=== PATIENT | female | born 1940 | race Caucasian/White ===

== ENCOUNTER → 2017-02-25 | Outpatient (CLI) | payer OTHER | END | disposition home or self-care (01) | LOC: MA 09:03 | PROC: BH02ZZZ Plain Radiography of Bilateral Breasts (ICD-10-PCS; principal; 2017-02-25) | DX: Z12.39 Encounter for other screening for malignant neoplasm of breast (principal) | CPT/HCPCS: G0202 ==

== ENCOUNTER 2017-04-21 17:42 | Inpatient (IN) | payer MEDICARE, MEDICAID ==
[~2017-04-21] VITALS: Ht 157.5 cm; Wt 85.3 kg
[2017-04-21 19:00] LABS: UA SPECIFIC GRAVITY 1.025 (1.005-1.035); microscopic required? YES; urine erythrocyte NEGATIVE (NEGATIVE)
[2017-04-21 19:11] LABS: BASOPHIL % 0.4 % (0-2); PLATELET COUNT 213 x10^3mcL (130-400); RED CELL DISTRIBUTION WIDTH 13.7 % (11.5-14.5)
[2017-04-21 19:17] LABS: CALCIUM 8.9 mg/dL (8.5-10.1); CARBON DIOXIDE 26.6 mmol/L (21-32); CHLORIDE SERUM 100 mmol/L (98-107); CREATININE SERUM 1.1 mg/dL (0.6-1.0); GLUCOSE SERUM 107 mg/dL (74-106); SODIUM SERUM 137 mmol/L (136-145)
[2017-04-21 19:22] LABS: ALBUMIN 3.4 g/dL (3.4-5.0); ALKALINE PHOSPHATASE 83 U/L (46-116); ALT/SGPT 45 U/L (14-59); AST/SGOT 53 U/L (15-37); BILIRUBIN TOTAL 0.6 mg/dL (0.20-1.00); TOTAL PROTEIN, SERUM 7.7 g/dL (6.4-8.2)
[2017-04-21] MEDS ORDERED: ROBAXIN500 MG PO (19:23)
[2017-04-21] MEDS ORDERED: CLARITIN10 MG PO (19:24)
[2017-04-21] MEDS ORDERED: PRAVASTATIN SOD20 M1 PO (19:24)
[2017-04-21] MEDS ORDERED: ASPIR 8181 MG PO (19:24)
[2017-04-21] MEDS ORDERED: AMITRIPTYLINE H25 MG PO (19:24)
[2017-04-21] MEDS ORDERED: MECLIZINE HYDRO25 M1 PO (19:25)
[2017-04-21] MEDS ORDERED: FUROSEMIDE20 MG PO (19:25)
[2017-04-21] MEDS ORDERED: GOOD SENSE OMEP20 MG PO (19:25)
[2017-04-21 19:57] LABS: CK-MB 1.1 ng/mL (0-3.6)
[2017-04-21 21:14] LABS: CHOLESTEROL/HDL RATIO 3.4; PHOSPHOROUS 3.5 mg/dL (2.5-4.9)
[2017-04-21 21:22] LABS: FREE T4 1.45 ng/dL (0.76-1.46); FREE THYROXINE INDEX 3.8 ug/dL (1.4-4.5); T3 TOTAL 1.03 ng/mL
[2017-04-21 21:58] VITALS: BP 148/56
[2017-04-21 22:06] VITALS: Ht 157.5 cm; Wt 85.3 kg
[2017-04-22 05:20] VITALS: BP 148/56
[2017-04-22 05:26] VITALS: BP 147/54
[2017-04-22 05:43] LABS: PLATELET COUNT 183 x10^3mcL (130-400); RED CELL DISTRIBUTION WIDTH 13.6 % (11.5-14.5)
[2017-04-22 06:05] LABS: CALCIUM 7.9 mg/dL (8.5-10.1); CARBON DIOXIDE 25.3 mmol/L (21-32); CHLORIDE SERUM 104 mmol/L (98-107); CREATININE SERUM 0.9 mg/dL (0.6-1.0); GLUCOSE SERUM 119 mg/dL (74-106); PHOSPHOROUS 3.5 mg/dL (2.5-4.9); POTASSIUM SERUM 3.9 mmol/L (3.5-5.1); SODIUM SERUM 137 mmol/L (136-145)
[2017-04-22 10:00] VITALS: BP 127/60
[2017-04-22 10:33] LABS: BAND NEUTROPHIL 9 % (0-10); BASOPHIL 0 % (0-2); MONOCYTE 21 % (0-7); SEGMENTED NEUTROPHILS 42 % (37-75)
[2017-04-22 14:17] VITALS: BP 122/55
[2017-04-22 17:52] VITALS: BP 123/53
[2017-04-22 20:45] VITALS: BP 115/45
[2017-04-23 05:58] LABS: BASOPHIL % 0.4 % (0-2); PLATELET COUNT 169 x10^3mcL (130-400); RED CELL DISTRIBUTION WIDTH 13.9 % (11.5-14.5)
[2017-04-23 06:03] VITALS: BP 116/51
[2017-04-23 06:15] LABS: CALCIUM 8.3 mg/dL (8.5-10.1); CARBON DIOXIDE 23.9 mmol/L (21-32); CHLORIDE SERUM 102 mmol/L (98-107); GLUCOSE SERUM 92 mg/dL (74-106); POTASSIUM SERUM 3.4 mmol/L (3.5-5.1); SODIUM SERUM 136 mmol/L (136-145)
[2017-04-23 10:00] VITALS: BP 120/52
[2017-04-23] MEDS ORDERED: CLEOCIN HCL300 MG PO (11:38)
[2017-04-23] MEDS ORDERED: LEVAQUIN750 MG PO (11:38)
[2017-04-23] MEDS ORDERED: LAC PO (11:40)
[2017-04-23] MEDS ORDERED: ELIQUIS5 MG PO (11:41)
[2017-04-23 13:54] VITALS: BP 120/52
[2017-04-23 17:38] VITALS: BP 130/62
[2017-04-23 18:46] VITALS: BP 130/62
[2017-04-23 21:41] VITALS: BP 132/69
[2017-04-24 06:01] VITALS: BP 130/50
[2017-04-24 06:14] LABS: PLATELET COUNT 184 x10^3mcL (130-400); RED CELL DISTRIBUTION WIDTH 13.9 % (11.5-14.5)
[2017-04-24 06:35] LABS: ALKALINE PHOSPHATASE 54 U/L (46-116); ALT/SGPT 37 U/L (14-59); AST/SGOT 39 U/L (15-37); BILIRUBIN TOTAL 0.57 mg/dL (0.20-1.00); CALCIUM 8.3 mg/dL (8.5-10.1); CARBON DIOXIDE 23.1 mmol/L (21-32); CHLORIDE SERUM 101 mmol/L (98-107); CREATININE SERUM 0.9 mg/dL (0.6-1.0); GLUCOSE SERUM 91 mg/dL (74-106); MAGNESIUM 1.8 mg/dL (1.8-2.4); PHOSPHOROUS 3.6 mg/dL (2.5-4.9); POTASSIUM SERUM 3.4 mmol/L (3.5-5.1); SODIUM SERUM 137 mmol/L (136-145); TOTAL PROTEIN, SERUM 6.4 g/dL (6.4-8.2)
[2017-04-24 06:57] LABS: ALBUMIN 2.5 g/dL (3.4-5.0)
[2017-04-24 09:31] LABS: BAND NEUTROPHIL 4 % (0-10); MONOCYTE 6 % (0-7); SEGMENTED NEUTROPHILS 24 % (37-75)
[2017-04-24 09:32] LABS: ATYPICAL LYMPH 9 %; BASOPHIL 0 % (0-2); PLATELET MORPHOLOGY PLATELETS DECREASED; rbc morphology (normal/abnorm) NORMAL (NORMAL)
[2017-04-24 10:00] VITALS: BP 112/58
[2017-04-24 18:17] VITALS: BP 124/57
[2017-04-24 21:52] VITALS: BP 134/63
[2017-04-25 05:37] VITALS: BP 123/50
[2017-04-25 10:08] VITALS: BP 132/67
[2017-04-25 14:34] VITALS: BP 132/67
== END 2017-04-25 15:15 | disposition home or self-care (01) | DRG 177 ==
LOC: ED 17:42 → MU 19:53 → DU 19:53 → MU 04-22 07:19
PROVIDERS: Emergency Medicine; ADMIT Family Medicine
DX: J69.0 Pneumonitis due to inhalation of food and vomit (principal); N17.0 Acute kidney failure with tubular necrosis; I26.99 Other pulmonary embolism without acute cor pulmonale; J96.00 Acute respiratory failure, unspecified whether with hypoxia or hypercapnia; K21.9 Gastro-esophageal reflux disease without esophagitis; F41.9 Anxiety disorder, unspecified; E66.9 Obesity, unspecified; G62.9 Polyneuropathy, unspecified; L40.9 Psoriasis, unspecified; E78.5 Hyperlipidemia, unspecified; M19.90 Unspecified osteoarthritis, unspecified site; Z79.82 Long term (current) use of aspirin; Z68.34 Body mass index [BMI] 34.0-34.9, adult
CPT/HCPCS: 36600; 83880; 84439; 85378; 97110-GP; 97116-GP; 97530-GP; J1644; J1956; J3490; J7030; J7050; J7620; J8597; Q0092; Q9967